=== PATIENT | female | born 1985 | race Hispanic/Latino ===

== ENCOUNTER 2019-12-21 14:01 | Outpatient (CLI) | payer OTHER | END 2019-12-21 14:02 | disposition home or self-care (01) | LOC: DTY/OP 14:01 | PROVIDERS: ATTEND Surgery | DX: E66.01 Morbid (severe) obesity due to excess calories (principal) | CPT/HCPCS: 97802 ==

== ENCOUNTER 2020-01-25 15:21 | Outpatient (CLI) | payer OTHER | END 2020-01-25 15:22 | disposition home or self-care (01) | LOC: DTY/OP 15:21 | PROVIDERS: ATTEND Surgery | DX: E66.01 Morbid (severe) obesity due to excess calories (principal) | CPT/HCPCS: 97802 ==

== ENCOUNTER 2020-02-22 13:31 | Outpatient (CLI) | payer OTHER | END 2020-02-22 13:32 | disposition home or self-care (01) | LOC: DTY/OP 13:31 | PROVIDERS: ATTEND Surgery | DX: E66.01 Morbid (severe) obesity due to excess calories (principal) | CPT/HCPCS: 97802 ==

== ENCOUNTER 2020-03-28 15:30 | Outpatient (CLI) | payer OTHER | END 2020-03-28 15:31 | disposition home or self-care (01) | LOC: DTY/OP 15:30 | PROVIDERS: ATTEND Surgery | DX: E66.01 Morbid (severe) obesity due to excess calories (principal) | CPT/HCPCS: 97802 ==

== ENCOUNTER 2020-05-10 06:52 | Outpatient (CLI) | payer OTHER ==
--- NOTE | 2020-05-10 16:45 | RAD ---
Exam: Chest one view HISTORY:Preoperative exam Comparison: None FINDINGS: Cardiac silhouette: Normal Aorta: Unremarkable Pulmonary vessels: Normal Costophrenic angles: Clear LUNGS: No masses or consolidation. Pneumothorax: None Osseous abnormalities: None IMPRESSION: No acute cardiopulmonary process.
[2020-05-10 18:14] LABS: #Basophils 0.1 thou/uL (0.0-0.2); #Eosinphils 0.2 thou/uL (0.0-0.7); #Lymphocytes 3.6 thou/uL (1.20-3.40); #Monocytes 0.8 thou/uL (0.11-0.59); #Neutrophils 6.8 thou/uL (1.40-6.50); %Basophils 0.8 % (0.0-1.0); %Eosinophils 1.6 % (0.0-10.0); %Lymphocytes 31.5 % (21.0-51.0); %Monocytes 6.6 % (0.0-10.0); %Neutrophils 59.5 % (42.0-75.0); Hemoglobin 14.7 g/dL (12.0-16.0); Mean Corpuscular HGB CONC 32.5 g/dL (32.0-36.0); Mean Corpuscular Hemoglobin 30.2 pg (27.0-31.0); Mean Platelet Volume 8.9 fL (7.4-10.4); Platelet Count 375 thou/uL (130-400); RBC Distribution Width 11.5 % (11.5-14.5); Red Blood Cell (RBC) Count 4.86 mill/uL (4.20-5.40); White Blood Cell (WBC) Count 11.4 thou/uL (4.8-10.8)
[2020-05-10 18:30] LABS: Hemoglobin A1c 7.5 % (4.0-6.0)
[2020-05-10 18:41] LABS: ALT (SGPT) 175 U/L (8-55); AST (SGOT) 76 U/L (5-34); Albumin 4.8 g/dL (3.5-5.0); Alkaline Phosphatase 109 U/L (40-110); Anion Gap 13 mmol/L (10-20); BUN (Urea Nitrogen) 13 mg/dL (7.0-18.7); Bilirubin, Total 0.3 mg/dL (0.2-1.2); Calc. Creatinine Clearance 0 mL/min (70-130); Calcium 9.7 mg/dL (7.8-10.44); Carbon Dioxide 25 mmol/L (22-29); Chloride 104 mmol/L (98-107); Estimated GFR-MDRD 88; Glucose 107 mg/dL (70-105); Potassium 4.1 mmol/L (3.5-5.1); Protein, Total 7.8 g/dL (6.0-8.3); Sodium 138 mmol/L (136-145)
[2020-05-10 18:49] LABS: BHCG - Serum Negative (NEGATIVE); Pregs Control Background? CLEAR/WHITE (CLR/WHITE); Pregs Control Bar Appear? YES (CONTROL BAR)
[2020-05-11 12:15] LABS: SARS-CoV-2 MS2 Positive; SARS-CoV-2 N Gene Negative; SARS-CoV-2 S Gene Negative; SARS-CoV-2 orf1ab Negative
== END 2020-05-10 06:53 | disposition home or self-care (01) ==
LOC: LABBT 06:52
PROVIDERS: ATTEND Surgery
DX: Z01.818 Encounter for other preprocedural examination (principal); Z11.59 Encounter for screening for other viral diseases; E66.01 Morbid (severe) obesity due to excess calories
CPT/HCPCS: 71045; 80053; 83036; 84703; 85025; 87635; U0003

== ENCOUNTER 2020-05-10 15:15 | Inpatient (IN) | payer OTHER ==
[2020-05-13] MEDS ORDERED: Acetaminophen 500 MG TAB ONE (11:12)
[2020-05-13] MEDS ORDERED: Heparin 5,000 UNITS/ML VIAL ONE (11:12)
[2020-05-13] MEDS ORDERED: Glycopyrrolate 0.2 MG/ML 5 ML SYRINGE ONE (11:32)
[2020-05-13] MEDS ORDERED: PROPOFOL 200 MG/20 ML VIAL ONE (11:32)
[2020-05-13] MEDS ORDERED: Ketorolac Tromethamine 30 MG/ML VIAL ONE (11:32)
[2020-05-13] MEDS ORDERED: Ondansetron PF 4 MG/2 ML Vial ONE (11:32)
[2020-05-13] MEDS ORDERED: Rocuronium Bromide 10 MG/ML (10ML VIAL) ONE (11:32)
[2020-05-13] MEDS ORDERED: PHENYLEPHRINE-NS 100 MCG/ML 10 ML SYRINGE ONE (11:32)
[2020-05-13] MEDS ORDERED: Dexamethasone 20 MG/5 ML VIAL ONE (11:32)
[2020-05-13] MEDS ORDERED: Lidocaine 1% PF 5 ML VIAL ONE (11:32)
[2020-05-13] MEDS ORDERED: Midazolam HCl 2 mg/2 ml Vial ONE (12:44)
[2020-05-13] MEDS ORDERED: Lidocaine 1% w/Epinephrine 1:100K 20 ML VIAL ONE (12:58)
[2020-05-13] MEDS ORDERED: Fentanyl 250 MCG/5 ML VIAL ONE (12:58)
[2020-05-13] MEDS ORDERED: Bupivacaine 0.25% HCL 30 ML VIAL ONE (12:58)
[2020-05-13] MEDS ORDERED: diphenhydrAMINE 50 MG/ML VIAL IM PRN (14:38)
[2020-05-13] MEDS ORDERED: Naloxone HCl 0.4 mg/ml Vial IV PRN (14:38)
[2020-05-13] MEDS ORDERED: Promethazine HCl 25 MG/ML VIAL SLOW IVP PRN (14:38)
[2020-05-13] MEDS ORDERED: Ondansetron HCl/PF 4 MG/2 ML Vial IVP PRN (14:38)
[2020-05-13] MEDS ORDERED: diphenhydrAMINE 25 MG CAP PO PRN (14:38)
[2020-05-13] MEDS ORDERED: fentaNYL Citrate/PF 2,000 MCG in Sodium Chloride 0.9% 60 ML IV PRN (14:38)
[2020-05-13] MEDS ORDERED: diphenhydrAMINE 50 MG/ML VIAL IVP PRN ×2 (14:38→14:39)
[2020-05-13] MEDS ORDERED: Ondansetron PF 4 MG/2 ML Vial IVP PRN ×2 (14:38→14:39)
[2020-05-13] MEDS ORDERED: Promethazine HCl 25 MG/ML VIAL IM PRN ×3 (14:38→14:39)
[2020-05-13] MEDS ORDERED: Zolpidem Tartrate 5 MG TAB PO PRN (14:38)
[2020-05-13] MEDS ORDERED: Dextrose 5% in Water 1,000 ML IV PRN (14:39)
[2020-05-13] MEDS ORDERED: hydrALAZINE 20 MG/ML VIAL SLOW IVP PRN (14:39)
[2020-05-13] MEDS ORDERED: HumaLOG 300 UNITS/3 ML VIAL SC PRN (14:39)
[2020-05-13] MEDS ORDERED: Hydrocodone-Acetamin 15 ML UDCUP PO PRN (14:39)
[2020-05-13] MEDS ORDERED: Dextrose 50% Abboject 50 ML SYRINGE SLOW IVP PRN ×2 (14:39)
[2020-05-13] MEDS ORDERED: Communication Order-Pharmacy FS SCH (14:45)
[2020-05-13] MEDS ORDERED: Fentanyl 100 MCG/2 ML VIAL ONE ×2 (14:48→15:27)
[2020-05-13] MEDS: Sodium Chloride 0.9% 1,000 ML IV SCH ×2 (16:48→23:39)
[2020-05-13 16:52] VITALS: BMI 39.1
--- NOTE | 2020-05-13 18:12 | OP ---
DATE OF PROCEDURE: 05/13/2020 PREOPERATIVE DIAGNOSES: 1. Morbid obesity with body mass index of 45. 2. Diabetes mellitus, type 2. POSTOPERATIVE DIAGNOSES: 1. Morbid obesity with body mass index of 45. 2. Diabetes mellitus, type 2. PROCEDURES PERFORMED: 1. Laparoscopic sleeve gastrectomy with GORE staple line reinforcement and 38-[place] bougie. 2. Esophagogastroduodenoscopy. ANESTHESIA: General. ESTIMATED BLOOD LOSS: Minimal. COMPLICATIONS: None. SPECIMENS: Stomach. FINDINGS: Normal postoperative EGD. DESCRIPTION OF PROCEDURE: The patient was taken to the operating room and laid supine on the operating room table. After general anesthetic was obtained, an OG tube was used to decompress the stomach. Arms and legs were double strapped to bariatric table. The abdomen was prepped and draped in a sterile fashion. A left subcostal 5-mm Optiview trocar was placed in usual fashion. High-flow pneumoperitoneum was obtained. Two abdominal 12-mm ports as well as a right subcostal 5-mm port were placed under direct visualization. A 5-mm incision was made at the xiphoid and Patsy was used to raise the liver off the GE junction. Short gastrics were taken down from the mid body of the stomach to the left barbra of the diaphragm. Left barbra, posterior fundus, and angle of His were completely dissected. Short gastrics were taken down to a distance of 6 cm proximal to the pylorus. OG tube was removed and the bougie was brought in 38-[place] and its tip left in the antrum of the stomach. Multiple loads of an [place] stapling device was used to perform the sleeve, the first fired up at distance of 6 cm proximal to the pylorus, angled up towards the incisura. Care was taken to avoid being too close to the incisura. Multiple loads then fired up along the bougie. Stomach was completely transected at the angle of His. The stomach was removed from left abdominal incision. This fascial defect was closed using a [place] needle and 0 Vicryl tie. All port sites were infiltrated using local anesthetic. The scope was passed through esophagus and stomach to the level of duodenum without obstruction. There was no air leakage through the staple line. There was no bleeding along the staple line. No evidence of stricture at the incisura and there was no involvement of the GE junction with the staple line. The EGD scope was decompressed. Stomach was pulled and removed. Patsy retractor was removed under direct visualization without bleeding. All port sites were removed under direct visualization without bleeding. Pneumoperitoneum was let down. Vicryl was used to close the fascial defect from the abdominal incisions. All incisions were irrigated and closed using 4-0 Monocryl and Dermabond. The patient was sent to Recovery in stable condition. All instrument counts, needle counts, and lap counts were correct. Job ID: [id number]
[2020-05-13] MEDS ORDERED: Enoxaparin Sodium 40 MG/0.4 ML SYRINGE SC SCH (21:00)
[2020-05-14 04:00] VITALS: TEMP 98.3
[2020-05-14 05:10] LABS: #Lymphocytes 2.6 thou/uL (1.20-3.40); #Monocytes 0.9 thou/uL (0.11-0.59); #Neutrophils 7.9 thou/uL (1.40-6.50); %Basophils 0.2 % (0.0-1.0); %Lymphocytes 23.1 % (21.0-51.0); %Monocytes 7.5 % (0.0-10.0); %Neutrophils 69.2 % (42.0-75.0); Hemoglobin 13.1 g/dL (12.0-16.0); Mean Corpuscular HGB CONC 32.7 g/dL (32.0-36.0); Mean Corpuscular Hemoglobin 30.5 pg (27.0-31.0); Mean Corpuscular Volume 93.2 fL (78.0-98.0); Mean Platelet Volume 8.1 fL (7.4-10.4); Platelet Count 341 thou/uL (130-400); RBC Distribution Width 11.3 % (11.5-14.5); White Blood Cell (WBC) Count 11.4 thou/uL (4.8-10.8)
[2020-05-14 05:30] LABS: Anion Gap 13 mmol/L (10-20); BUN (Urea Nitrogen) 5 mg/dL (7.0-18.7); Calc. Creatinine Clearance 190 mL/min (70-130); Calcium 8.1 mg/dL (7.8-10.44); Carbon Dioxide 24 mmol/L (22-29); Chloride 106 mmol/L (98-107); Estimated GFR-MDRD Greater than 90; Glucose 128 mg/dL (70-105); Potassium 4.1 mmol/L (3.5-5.1); Sodium 139 mmol/L (136-145)
--- NOTE | 2020-05-14 07:25 | PDOC.BPN ---
- Brief Progress Note Ms. Elliott is a 34 year old Female on 1 day post sleeve gastrectomy. Overall, patient says she is doing well. She has been eating solids and tolerating liquids since yesterday. Patient occasionally feels a burning sensation in the epigastric region after eating and taking liquids. Pt also feels a constant pressure-like pain in the abdomen radiating to the arm, and rates it a 5/10. Pt does occasionally feels nauseous, but rates it at a zero or 1/10. On physical Exam, lung sounds clear upon auscultation, heart sounds regular with no murmurs, absent bleeding and glue intact on incision sites. Slight tenderness upon palpation of the epigastric region. No abdomen distention. Vital Signs are unremarkable. WBC high at 11.4.
[2020-05-14] MEDS ORDERED: Hydrocodone-Acetamin 15 ML UDCUP PO PRN (08:14)
[2020-05-14 08:20] VITALS: BP 145/89
--- NOTE | 2020-05-14 08:37 | DIS ---
DATE OF ADMISSION: 05/13/2020 DATE OF DISCHARGE: 05/14/2020 ADMITTING DIAGNOSES: 1. Morbid obesity. 2. Diabetes mellitus. DISCHARGE DIAGNOSES: 1. Morbid obesity. 2. Diabetes mellitus. PROCEDURES: Laparoscopic sleeve gastrectomy by Dr. Charles without complication. CONDITION ON DISCHARGE: Improved. STAFF: Carl Charles MD HOSPITAL COURSE: Postop day 1, the patient is doing well, tolerating the liquids, ambulatory, complaining of mild pain at the xiphoid. ASSESSMENT: Postop day 1, sleeve, doing well. PLAN: Discharged home. Follow up with me in 2 weeks. Job ID: [id number]
[2020-05-14] MEDS ORDERED: Pantoprazole 40 MG VIAL IVP SCH (09:00)
[2020-05-14] MEDS: Sodium Chloride 0.9% 1,000 ML IV SCH (09:10)
== END 2020-05-14 12:10 | disposition home or self-care (01) | DRG 621 ==
LOC: SURG A 05-13 10:42 → EDSTATUS 05-13 15:15 → SURG A 05-13 16:44
PROVIDERS: ADMIT Surgery; ATTEND Surgery
PROC: 0DB64Z3 Excision of Stomach, Percutaneous Endoscopic Approach, Vertical (ICD-10-PCS; principal; 2020-05-13)
PROC: 0DJ08ZZ Inspection of Upper Intestinal Tract, Via Natural or Artificial Opening Endoscopic (ICD-10-PCS; 2020-05-13)
DX: E66.01 Morbid (severe) obesity due to excess calories (principal); E11.9 Type 2 diabetes mellitus without complications; J45.909 Unspecified asthma, uncomplicated; Z90.49 Acquired absence of other specified parts of digestive tract; Z68.42 Body mass index [BMI] 45.0-49.9, adult; Z79.84 Long term (current) use of oral hypoglycemic drugs; Z79.899 Other long term (current) drug therapy
CPT/HCPCS: 36415; 36416; 71045; 80048; 80053; 83036; 84703; 85025; 87635; 88307; 88312; 93005; 93010; 94760; C9113; J0690; J1100; J1644; J1650; J1885; J2001; J2250; J2405; J2704; J3010; S0020; U0003

== ENCOUNTER 2020-05-20 17:36 | Emergency (ER) | payer OTHER ==
[2020-05-20 18:18] LABS: #Basophils 0.1 thou/uL (0.0-0.2); #Eosinphils 0.2 thou/uL (0.0-0.7); #Lymphocytes 3.4 thou/uL (1.20-3.40); #Monocytes 0.8 thou/uL (0.11-0.59); #Neutrophils 6.7 thou/uL (1.40-6.50); %Basophils 0.6 % (0.0-1.0); %Lymphocytes 30.5 % (21.0-51.0); Hemoglobin 15.3 g/dL (12.0-16.0); Mean Corpuscular HGB CONC 33.7 g/dL (32.0-36.0); Mean Corpuscular Hemoglobin 31.1 pg (27.0-31.0); Mean Corpuscular Volume 92.2 fL (78.0-98.0); Mean Platelet Volume 8.2 fL (7.4-10.4); Platelet Count 408 thou/uL (130-400); RBC Distribution Width 11.5 % (11.5-14.5); Red Blood Cell (RBC) Count 4.92 mill/uL (4.20-5.40); White Blood Cell (WBC) Count 11.2 thou/uL (4.8-10.8)
[2020-05-20 18:36] LABS: BHCG - Serum Negative (NEGATIVE); Pregs Control Background? CLEAR/WHITE (CLR/WHITE); Pregs Control Bar Appear? YES (CONTROL BAR)
[2020-05-20 18:40] LABS: ALT (SGPT) 149 U/L (8-55); AST (SGOT) 74 U/L (5-34); Albumin 4.8 g/dL (3.5-5.0); Alkaline Phosphatase 124 U/L (40-110); Anion Gap 15 mmol/L (10-20); BUN (Urea Nitrogen) 11 mg/dL (7.0-18.7); Bilirubin, Total 0.6 mg/dL (0.2-1.2); CK (CPK) 81 U/L (29-168); Calc. Creatinine Clearance 0 mL/min (70-130); Calcium 9.8 mg/dL (7.8-10.44); Carbon Dioxide 24 mmol/L (22-29); Chloride 101 mmol/L (98-107); Estimated GFR-MDRD Greater than 90; Globulin 3.1 g/dL (2.4-3.5); Glucose 107 mg/dL (70-105); Lipase 35 U/L (8-78); Magnesium 1.9 mg/dL (1.6-2.6); Potassium 3.2 mmol/L (3.5-5.1); Protein, Total 7.9 g/dL (6.0-8.3); Sodium 137 mmol/L (136-145)
[2020-05-20] MEDS ORDERED: Potassium Chloride 20 MEQ TAB ONE (19:13)
== END 2020-05-20 21:01 | disposition home or self-care (01) ==
LOC: ERS 17:36
DX: E86.0 Dehydration (principal); E87.6 Hypokalemia; J45.909 Unspecified asthma, uncomplicated; E11.9 Type 2 diabetes mellitus without complications
CPT/HCPCS: 80053; 82550; 83690; 83735; 84484; 84703; 85025; 93005; 96360; 96361